=== PATIENT | female | born 1995 | race Caucasian/White ===

== ENCOUNTER 2019-08-04 02:24 | Emergency (ER) | payer SELFPAY ==
[~2019-08-04] VITALS: Ht 144.8 cm; Wt 36.3 kg
[2019-08-04 02:38] VITALS: BP 110/70
--- NOTE | 2019-08-04 02:38 | NUR ---
ER Nurse Note: Pt brought in by ambulance c/o behavior complaint since unk time. Pt stated she wants to referals for drug rehab. Pt denies shortness of breath, chest pain, no signs of distress. Pt ambulatory. Blood drawn, pt refused to keep IV. Pt cooperative. Will continue to [facility].
[2019-08-04 03:04] LABS: BASOPHILS % (AUTO) 1.1 % (0.0-2.0); EOSINOPHILS % (AUTO) 3.2 % (0.0-3.0); HEMOGLOBIN 14.5 G/DL (12.0-16.0); LYMPHOCYTES % (AUTO) 39.8 % (20.0-45.0); MEAN CORPUSCULAR VOLUME 84 FL (80-99); NEUTROPHILS % (AUTO) 50.9 % (45.0-75.0); PLATELET COUNT 400 K/UL (150-450); RED BLOOD COUNT 4.86 M/UL (4.20-5.40); RED CELL DISTRIBUTION WIDTH 11.5 % (11.6-14.8); WHITE BLOOD COUNT 13.6 K/UL (4.8-10.8)
[2019-08-04 03:07] LABS: APPEARANCE,URINE CLEAR; BILIRUBIN, URINE NEGATIVE (NEGATIVE); COLOR,URINE PALE YELLOW; GLUCOSE, URINE (UA) NEGATIVE (NEGATIVE); KETONES,URINE NEGATIVE (NEGATIVE); LEUKOCYTE ESTERASE ,URINE 1+ (NEGATIVE); NITRITE,URINE NEGATIVE (NEGATIVE); PH,URINE 6 (4.5-8.0); PROTEIN,URINE NEGATIVE (NEGATIVE); UROBILINOGEN,URINE NORMAL MG/DL (0.0-1.0)
[2019-08-04 03:16] LABS: ANION GAP 9 mmol/L (5-15); BLOOD UREA NITROGEN 9 mg/dL (7-18); CALCIUM 8.9 MG/DL (8.5-10.1); CARBON DIOXIDE 27 MMOL/L (21-32); CHLORIDE 107 MMOL/L (98-107); CREATININE 0.7 MG/DL (0.55-1.30); POTASSIUM 3.7 MMOL/L (3.5-5.1); SODIUM 143 MMOL/L (136-145)
[2019-08-04 03:20] LABS: ALANINE AMINOTRANSFERASE 25 U/L (12-78); ALBUMIN 3.5 G/DL (3.4-5.0); ALKALINE PHOSPHATASE 78 U/L (46-116); ASPARTATE AMINO TRANSFERASE 15 U/L (15-37); BILIRUBIN,TOTAL 0.1 MG/DL (0.2-1.0)
--- NOTE | 2019-08-04 03:34 | Emergency Room Report ---
History of Present Illness General Chief Complaint: Behavioral Complaint Source: Patient, EMS Present Illness HPI Disclaimer: Please note that this report is being documented using DRAGON technology. This can lead to erroneous entry secondary to incorrect interpretation by the dictating instrument. HPI: 23-year-old female history of schizophrenia presents for evaluation of suicidal ideation. She is brought in by [facility] no legal status. She does not take any psychiatric medications or follows with psychiatry. She keeps anxious suicidal but states she has no plan. She has not ingested any chemicals or pills. Has not attempted any self-harm behavior. She states she just like to sleep in the emergency department. States it is too cold to sleep outside. Denies any chest pain, palpitation, shortness of breath, abdominal pain, vomiting, diarrhea, headaches or other changes in her health this time. She wants to be left alone to sleep. PMH: Schizophrenia PSH: Denies Allergies: Denies Social Hx: Denies Allergies: Coded Allergies: No Known Allergies (Unverified , 08/04/19) Patient History Now: No Nursing Documentation-PMH Past Medical History: No History, Except For Review of Systems All Other Systems: negative except mentioned in HPI Physical Exam Vital Signs Date Time Temp Pulse Resp B/P (MAP) Pulse Ox O2 Delivery O2 Flow Rate FiO2 08/04/19 02:29 98.4 97 18 110/70 (83) 99 Room Air General: Awake and alert, no acute distress HEENT: NC/AT. EOMI. moist mucous membranes Cardiovascular: RRR. S1 and S2 normal. No murmur appreciated Resp: Normal work of breathing. No cough, wheezing or crackles appreciated Abdomen: Abdomen is soft, nondistended. Nontender Skin: Intact. No abrasions, laceration or rash over the exposed skin MSK: Normal tone and bulk. Moving all extremities. No obvious deformity. Neuro: Awake and alert. Mentating appropriately. Medical Decision Making Homeless Attestation Patient has been medically screened and is stable for outpatient follow up Diagnostic Impression: Primary Impression: Amphetamine abuse ER Course 23-year-old homeless female with a reported history of schizophrenia but not taking any psychiatric medications presents for suicidal ideation. Patient does not have a plan not attempt for behavior. She would like to sleep in the emergency department until the morning. States it is too cold to be outside. Will start psychiatric screening labs and reevaluate in the morning. Laboratory Tests Test 08/04/19 02:44 White Blood Count 13.6 K/UL (4.8-10.8) H Red Blood Count 4.86 M/UL (4.20-5.40) Hemoglobin 14.5 G/DL (12.0-16.0) Hematocrit 41.0 % (37.0-47.0) Mean Corpuscular Volume 84 FL (80-99) Mean Corpuscular Hemoglobin 29.8 PG (27.0-31.0) Mean Corpuscular Hemoglobin Concent 35.4 G/DL (32.0-36.0) Red Cell Distribution Width 11.5 % (11.6-14.8) L Platelet Count 400 K/UL (150-450) Mean Platelet Volume 5.4 FL (6.5-10.1) L Neutrophils (%) (Auto) 50.9 % (45.0-75.0) Lymphocytes (%) (Auto) 39.8 % (20.0-45.0) Monocytes (%) (Auto) 5.0 % (1.0-10.0) Eosinophils (%) (Auto) 3.2 % (0.0-3.0) H Basophils (%) (Auto) 1.1 % (0.0-2.0) Urine Color Pale yellow Urine Appearance Clear Urine pH 6 (4.5-8.0) Urine Specific [place] 1.025 (1.005-1.035) Urine Protein Negative (NEGATIVE) Urine Glucose (UA) Negative (NEGATIVE) Urine Ketones Negative (NEGATIVE) Urine Blood Negative (NEGATIVE) Urine Nitrite Negative (NEGATIVE) Urine Bilirubin Negative (NEGATIVE) Urine Urobilinogen Normal MG/DL (0.0-1.0) Urine Leukocyte Esterase 1+ (NEGATIVE) H Urine RBC 0-2 /HPF (0 - 2) Urine WBC 0-2 /HPF (0 - 2) Urine Squamous Epithelial Cells Many /LPF (NONE/OCC) H Urine Bacteria Few /HPF (NONE) Urine HCG, Qualitative Negative (NEGATIVE) Sodium Level 143 MMOL/L (136-145) Potassium Level 3.7 MMOL/L (3.5-5.1) Chloride Level 107 MMOL/L (98-107) Carbon Dioxide Level 27 MMOL/L (21-32) Anion Gap 9 mmol/L (5-15) Blood Urea Nitrogen 9 mg/dL (7-18) Creatinine 0.7 MG/DL (0.55-1.30) Estimate Glomerular Filtration Rate > 60 mL/min (>60) Glucose Level 97 MG/DL (74-106) Calcium Level 8.9 MG/DL (8.5-10.1) Total Bilirubin 0.1 MG/DL (0.2-1.0) L Aspartate Amino Transferase (AST) 15 U/L (15-37) Alanine Aminotransferase (ALT) 25 U/L (12-78) Alkaline Phosphatase 78 U/L (46-116) Total Protein 7.0 G/DL (6.4-8.2) Albumin 3.5 G/DL (3.4-5.0) Globulin 3.5 g/dL Albumin/Globulin Ratio 1.0 (1.0-2.7) Salicylates Level 2.4 ug/mL (2.8-20) L Urine Opiates Screen Negative (NEGATIVE) Acetaminophen Level < 2 MCG/ML (10-30) L Urine Barbiturates Screen Negative (NEGATIVE) Phencyclidine (PCP) Screen Negative (NEGATIVE) Urine Amphetamines Screen Positive (NEGATIVE) H Urine Benzodiazepines Screen Negative (NEGATIVE) Urine Cocaine Screen Negative (NEGATIVE) Urine Marijuana (THC) Screen Negative (NEGATIVE) Serum Alcohol < 3 mg/dL EKG Diagnostic Results EKG Time: 02:38 Rate: normal Rhythm: NSR ST Segments: no acute changes Other Impression Sinus rhythm, normal axis, normal intervals, no ST segment changes Rhythm Strip Diag. Results Rhythm Strip Time: 02:38 EP Interpretation: yes Rate: 80s Rhythm: NSR, no PVC's, no ectopy Reevaluation Time: 06:43 Last Vital Signs Date Time Temp Pulse Resp B/P (MAP) Pulse Ox O2 Delivery O2 Flow Rate FiO2 08/04/19 02:38 97 18 Room Air 08/04/19 02:38 98.4 110/70 99 Reevaluation Impression Patient has been monitored in emergency department roughly 4 hours. She has been sleeping the entire time. She has now awake alert and requesting to go to rehab. We provided several outpatient options for her to get in contact with which she says she was due. She denies any suicidality at this time. Again she was mostly stating she needed a place to stay for the night because it was cold out but now she would like to go to rehab on an outpatient basis. She had no plan to harm herself at any point during the emergency department visit. She can follow-up on an outpatient basis I encouraged her to follow-up with PMD and psychiatry as well as substance abuse counselors. Discussed reasons to return to the emergency department. She understands and agrees. Disposition: HOME, SELF-CARE Condition: Stable Referrals: NOT CHOSEN IPA/,REFERRING (PCP) Luis Hurtado MD Aug 04, 2019 03:34
--- NOTE | 2019-08-04 05:25 | NUR ---
ER Nurse Note: Pt calm, cooperative, no signs of distress. Pt asleep. Relocated to Ortho room; report given to SANTOS Garcia. Resources for rehab given.
[2019-08-04 05:26] VITALS: BP 116/76
[2019-08-04 06:40] VITALS: BP 116/76
--- NOTE | 2019-08-04 06:40 | NUR ---
ER DISCHARGE NOTE: Patient is cleared to be discharged per ERMD, pt is aox4, on room air, with stable vital signs. pt was given dc and prescription instructions, pt was able to verbalize understanding, pt id band removed. pt is able to ambulate with steady gait. pt took all belongings.
== END 2019-08-04 06:40 | disposition home or self-care (01) ==
LOC: EDBD 02:24 → EMR 03:00
DX: F15.10 Other stimulant abuse, uncomplicated (principal); F20.9 Schizophrenia, unspecified; Z59.0 Homelessness
CPT/HCPCS: 36415; 80053; 80307; 81003; 81025; 85025; 93005; 99284; G0480

== ENCOUNTER 2019-08-04 08:03 | Emergency (ER) | payer SELFPAY ==
[~2019-08-04] VITALS: Ht 154.9 cm; Wt 45.4 kg
[2019-08-04 08:15] VITALS: BP 99/63
--- NOTE | 2019-08-04 08:34 | NUR ---
ED Nurse Note: PT walked in to ED for C/O being depressed and need info for skilled nursing and food. PT states she wants to hurt her self but does not have a plan.
[2019-08-04 08:35] VITALS: BP 102/60
--- NOTE | 2019-08-04 08:35 | NUR ---
ED Nurse Note: Patient asked for food. Provided sandwiches and juice.
--- NOTE | 2019-08-04 09:28 | NUR ---
BAR GAUGER AND LUBRICATOR TENDER NOTE ESPERANZA was notified that pt requested to see SW. SW met w/ pt and assessed pt's needs. Pt presents as agitated, aggressive and uncooperative. Pt was yelling, stating she is suicidal but she has no suicidal plan. ESPERANZA encouraged pt to F/U w/ outpatient [facility]. PT declined to receive mental health resource packet. Pt was screaming that she cannot walk. SW witnessed pt standing and walking around. Pt is medically cleared and does not need DME. Pt requested SW to make a referral to substance abuse rehab program. ESPERANZA explained admission process and encouraged pt to call [facility]. Pt also declined to receive the list of winter shelters but is wiling to accept a tap card upon DC. Pt to be discharged her preferred location. Signed: 08/04/19 at 0933 by FABRICIO MATA <Co-Signature Required>
--- NOTE | 2019-08-04 09:30 | NUR ---
AMA: SEE AMA FORM.PT became angry and verbally aggressive toward social service and ERMD and stated she just wants to leave instead. Bus token provided. pt walked out of ED in steady gait.
--- NOTE | 2019-08-04 09:57 | Emergency Room Report ---
History of Present Illness General Chief Complaint: Suicidal Source: Patient Present Illness HPI Patient was recently in the hospital had been dispositioned Patient returns and checks back and reports that she feels suicidal Patient reports that she has history of bipolar schizophrenia has not taken medication over the past 8 months Denies any headache denies any chest pain Patient does not have any specific plans Denies any auditory or visual hallucinations does admit to doing methamphetamine earlier today Allergies: Coded Allergies: No Known Allergies (Unverified , 08/04/19) Patient History Past Medical History: see triage record Last Menstrual Period: "I don't know" Reviewed Nursing Documentation: PMH: Agreed; PSxH: Agreed Nursing Documentation-PMH Past Medical History: No History, Except For Hx Cardiac Problems: No - substance abuse Hx Hypertension: No Hx Pacemaker: No Hx Asthma: No Hx COPD: No Hx Diabetes: No Hx Cancer: No Hx Gastrointestinal Problems: No Hx Dialysis: No History Of Psychiatric Problem: No Hx Neurological Problems: No Hx Cerebrovascular Accident: No Hx Seizures: No Review of Systems All Other Systems: negative except mentioned in HPI Physical Exam Vital Signs Date Time Temp Pulse Resp B/P (MAP) Pulse Ox O2 Delivery O2 Flow Rate FiO2 08/04/19 08:15 97.3 81 16 99/63 (75) 94 Room Air Sp02 EP Interpretation: reviewed, normal General Appearance: no apparent distress Head: normocephalic, atraumatic Eyes: bilateral eye PERRL, bilateral eye EOMI ENT: EOM grossly intact Neck: supple Respiratory: lungs clear, no respiratory distress, no retraction Cardiovascular #1: regular rate, rhythm Gastrointestinal: non tender, soft Musculoskeletal: normal inspection - Ambulating without focal deficit Neurologic: alert, oriented x3 Psychiatric: other - Upon arrival reported suicidal thoughts denies any visual or auditory hallucinations Skin: no rash Medical Decision Making Diagnostic Impression: Primary Impression: ama ER Course Upon arrival social work and psychiatric services were consulted Patient is allowed to rest And reports taking Seroquel previously therefore this was prescribed During her wait for social work patient begins to yell for food Social work did present and after further discussion patient and she did not Want to speak to social work Again starting yelling at the social work and myself Patient at this time reports that she does not have any suicidal ideations And she wants a bus pass Social work also attempt to provide patient with outpatient resources and patient left prior to further evaluation Last Vital Signs Date Time Temp Pulse Resp B/P (MAP) Pulse Ox O2 Delivery O2 Flow Rate FiO2 08/04/19 08:35 97.3 81 16 102/60 96 Room Air Status: unchanged Disposition: AGAINST MEDICAL ADVICE Condition: Improved Referrals: NOT CHOSEN IPA/,REFERRING (PCP) Eric Kaur DO Aug 04, 2019 09:57
== END 2019-08-04 09:30 | disposition left against medical advice (07) ==
LOC: EMR 08:43
DX: R45.851 Suicidal ideations (principal); Z53.29 Procedure and treatment not carried out because of patient's decision for other reasons
CPT/HCPCS: 99282